=== PATIENT | male | born 1960 | race Caucasian/White ===

== ENCOUNTER 2019-02-21 06:05 | Inpatient (IN) ==
[2019-02-21] MEDS ORDERED: Albuterol 2.5 MG/3 ML NEBULIZER IH ONE (06:19)
[2019-02-21] MEDS ORDERED: CeFAZolin Syr 2,000MG/20 ML 2,000 MG/20 ML SYRINGE IVPB ONE (06:20)
[2019-02-21] MEDS ORDERED: Ringers Solution, Lactated 1,000 ML IVC SCH ×2 (06:30→10:27)
[2019-02-21] MEDS ORDERED: Famotidine 20 MG/2 ML VIAL IVP ONE (06:45)
[2019-02-21] MEDS ORDERED: Celecoxib 100 MG CAPSULE PO ONE (06:46)
--- NOTE | 2019-02-21 06:56 | Anesthesia Evaluation PreOp ---
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 History: Denies Any Significant HX Other Medical History: Denies Any Significant HX, GERD Alcohol Use: none Drug use: none Medications and Allergies Albuterol Sulfate [Ventolin Hfa] 2 puff IH Q4H PRN 06/20/18 [History] Amitriptyline [Elavil] 50 mg PO HS 06/20/18 [History] Buspirone HCl [Buspar] 10 mg PO DAILY 06/20/18 [History] Citalopram Hydrobromide [Citalopram HBr] 40 mg PO DAILY 06/20/18 [History] Fluticasone/Salmeterol [Advair 250-50 Diskus] 1 puff IH DAILY 06/20/18 [History] Gabapentin [Neurontin] 800 mg PO TID 06/20/18 [History] Isosorbide MONOnitrate (24 HR) [Imdur] 30 mg PO DAILY 06/20/18 [History] Omeprazole [PriLOSEC] 40 mg PO DAILY 06/20/18 [History] Oxymorphone HCl [Oxymorphone HCl ER] 40 mg PO TID 06/20/18 [History] Ranitidine HCl [Acid Brush Holder Assembler] 150 mg PO BID PRN 06/20/18 [History] rOPINIRole [Requip] 3 mg PO TID 06/20/18 [History] Allergy/AdvReac Type Severity Reaction Status Date / Time latex Allergy Hives Verified 02/13/19 09:14 tiotropium Allergy Hives Verified 02/13/19 09:14 [From Spiriva with HandiHaler] - Meds/Allergy Pre-op Review Medications Reviewed: Yes Allergies Reviewed: Yes Beta Blockers on Current Med List: No Anesthesia Results - Labs Laboratory Tests 03/14/15 02/13/19 02/13/19 08:56 09:20 09:20 Hgb 13.3 Hct 41.8 Plt Count 222 Sodium 136 Potassium 4.7 BUN 12 POC Creatinine 0.80 - Imaging EKG: report reviewed (SR) Anesthesia Exam O2 Sat Height 1.63 m Weight 79.379 kg O2 Sat by Pulse Oximetry 97 O2 Sat by Pulse Oximetry 97 Vital Signs Temp Pulse Resp BP Pulse Ox 97.9 F 90 16 126/86 97 02/21/19 06:22 02/21/19 06:22 02/21/19 06:22 02/21/19 06:22 02/21/19 06:22 Height: 5'4 Weight: 175 lbs NPO (# of Hours): MN Pain Scale: 0 - HEENT Pupil (Motor): Pupils equal, EOMI Mallampati: III Teeth: Edentulous Oral Opening: Less than or equal to 3 - GALVANIZING POT RUNNER LOC: Oriented GALVANIZING POT RUNNER Motor: Normal RUE, Normal LUE, Normal RLE, Normal LLE, Normal Face GALVANIZING POT RUNNER Sensory: Normal: RUE, LUE, RLE, LLE, Face - Cardiac Rhythm: Regular Murmur: None JVD: No Carotid Bruit: No - Pulmonary Breath Sounds: bilateral Clear Respiratory Effort: Symmetrical Anesthesia Assess/Plan ASA Score: 3 (CAD HTN COPD MARY Tobacco) Level of consciousness: Cooperative, Oriented Anesthetic Plan: General, Regional Nerve Block Regional Nerve Block Plan: Supraclavicular Autologous Blood: No Monitoring Plan: Standard Monitors Recovery Plan: PACU (Discussed GA, RA, agrees to proceed)
[2019-02-21] MEDS ORDERED: *HR* Propofol 200 MG/20 ML VIAL IVP ONE (06:58)
[2019-02-21] MEDS ORDERED: *HR* Midazolam HCl 2 MG/2 ML VIAL ONE (06:58)
[2019-02-21] MEDS ORDERED: *HR* FentaNYL (PF) 100 MCG/2 ML VIAL ONE (06:58)
[2019-02-21] MEDS ORDERED: Lidocaine -MPF 2% 2 ML VIAL ONE (07:11)
[2019-02-21] MEDS ORDERED: Lidocaine -MPF 4% 5 ML AMPUL ONE (07:11)
[2019-02-21] MEDS ORDERED: Ondansetron 4 MG/2 ML VIAL ONE (07:11)
[2019-02-21] MEDS ORDERED: Ethanol\\Acetic Acid\\Na Ace\\Ben 1,000 ML IRRIG.SOLN IR ONE (07:16)
[2019-02-21] MEDS ORDERED: ROPIVACAINE/PF/NS 0.25% 1 EACH SYRINGE INTRAART ONE (07:24)
[2019-02-21] MEDS ORDERED: Ropivacaine/PF 0.5% 30 ML VIAL ONE (07:24)
--- NOTE | 2019-02-21 07:30 | History & Physical Report ---
Date of Encounter: 02/21/19 Time of Encounter: 07:30 24 Hour HP Update - Instructions Instructions: If the History and Physical is less than 30 days old and was completed prior to A.M. admission and or procedure and has NOT been updated on calendar day of procedure please complete this update prior to performing procedure. - Update Patient reports changes in Medical Condition: No Changes in examination, assessment, or condition: No Changes in Medication: No Preop tests/diagnostics Reviewed: Yes Surgery Remains Indicated: Yes Consent for Planned Operative Procedure(s) Verified: Yes
[2019-02-21] MEDS ORDERED: *HR* PHENYLEPHRINE 1,000 MCG/10 ML SYRINGE IVP ONE (08:08)
--- NOTE | 2019-02-21 08:23 | Anesthesia Procedures ---
Date of Encounter: 02/21/19 Time of Encounter: 07:44 Procedures: Anesthesia - Nerve Block Procedure Date: 02/21/19 Time: 07:44 Allergies/Adv Reactions: Allergies Allergy/AdvReac Type Severity Reaction Status Date / Time latex Allergy Hives Verified 02/21/19 07:14 tiotropium Allergy Hives Verified 02/21/19 07:14 [From Spiriva with HandiHaler] Pre-op Diagnosis: Right Shoulder Cuff Tear Arthropathy Surgical Procedure: Right Reverse Total Shoulder Replacement Checklist: Correct Patient Identifier, Correct procedure, History checked Correct side: Right Blood Thinner: No Monitor Applied: EKG, BP, Pulse Oximetry Supplemental Oxygen via Nasal Cannula (L/min): 2 Sedation: Versed (mg): 2 Sedation: Fentanyl (mcg): 50 Indication: Post Op Analgesia Pre-op Neuro Deficits: No Block Type: Supraclavicular (ICB and SCP along with Supraclavicular) Sterile Technique: Yes Ultrasound used: Yes Anatomy identified: Yes Visual spread of Local: Yes Neuro Stimulation: No Blood on Needle Aspiration: No Smooth Injection of Local: Yes Pain with Injection of Local: No Prep: Chlorhexadine Needle: 22 x 50 mm Stimuplex Local: Ropivacaine (30ml 0.5% with 8mg Decadron (Supraclavicular) and Ropivacaine 0.25% used for ICB and SCP blocks 7ml each (14ml total)) Volume (cc): 44ml Number of Attempts: 1 Complications: None/effective block Vitals: Vital Signs/O2 Sat/Glucose, Most Recent Temp Pulse Resp BP Pulse Ox 97.9 F 83 16 121/82 94 02/21/19 06:22 02/21/19 07:43 02/21/19 07:43 02/21/19 07:43 02/21/19 07:43
[2019-02-21] MEDS ORDERED: *HR* Rocuronium Bromide 50 MG/5 ML VIAL ONE (08:42)
[2019-02-21] MEDS ORDERED: *HR* Succinylcholine 200 MG/10 ML VIAL IVP ONE (08:50)
[2019-02-21] MEDS ORDERED: Tranexamic Acid 1,000 MG/10 ML VIAL ONE (09:00)
[2019-02-21] MEDS ORDERED: Neostigmine Methylsulfate 3 MG/3 ML SYRINGE ONE (09:15)
--- NOTE | 2019-02-21 10:13 | Anesthesia Evaluation Post Op ---
Date of Encounter: 02/21/19 Time of Encounter: 10:12 - Vital Signs Vital Signs: Vital Signs/O2 Sat, Most Current Temp Pulse Resp BP Pulse Ox 97.3 F L 77 16 103/63 99 02/21/19 10:08 02/21/19 10:08 02/21/19 10:08 02/21/19 10:08 02/21/19 10:08 - Lungs Lungs: Clear Ascult./Percussion - Airway Airway: Non-obstructed - Cardiovascular Regular Rate - Mental Status Mental Status: Asleep with brisk response to light stimulation - Pain Pain Scale: 0 Pain Scale used: Numeric (1 - 10) - Nausea Vomiting Nausea Vomiting: Not Present - Hydration Hydration: Ice chips, Has not voided - Discharge PostOp Status: Transfer Patient to floor
--- NOTE | 2019-02-21 10:18 | Orthopedic Operative Note ---
Date of procedure: 02/21/19 Procedure: Procedure: Right reverse total shoulder arthroplasty Preoperative diagnosis: Right shoulder cuff tear arthropathy Postoperative diagnosis: Same Surgeon: Jl Pool MD Electric Truck Operator: None Anesthesia: General with regional block EBL: 100 cc Components used: Tornier perform reversed 25 mm+3mm lateralized baseplate, 35x6.5mm center screw. 39 standard glenosphere, Aequalis ascend flex 4bPTC stem, Low offset +0 thick tray, Flex 39+6mm poly Complications: none Indications: This is a 58-year-old male who has long history of right shoulder pain with cuff tear arthropathy confirmed on radiographs. Pain and limitation in motion has been present and has been progressively worsening. 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 The patient has failed conservative treatment including anti- inflammatories, therapy and injections. The patient has elected for a right reverse shoulder replacement after failure of nonoperative treatment. The risks and benefits of the procedure were fully explained to the patient. These risks include, but are not limited to, the risk of infection, neurovascular injury, continued pain and stiffness of the shoulder, need for further surgery, DVT, PE, loss of limb and loss of life. The patient did understand all of these risks and wishes to proceed. Informed consent was then obtained. Operative procedure: The patient was brought back to the OR suite by the anesthesia staff. The patient was then placed supine on the operating table and all bony prominences were padded. The anesthesiologist then performed successful general anesthetic for the remainder of the case. The head, neck and airway were secured and protected by anesthesia. The bed was elevated about 30 degrees. The right upper extremity was then prepped and draped in the normal sterile orthopedic fashion and placed in the Trimano arm rush. Preoperative antibiotics were then given prior to incision. A timeout was performed confirming the correct patient, site and side, procedure to be performed and any allergies. All were in agreement and we did proceed. A standard deltopectoral approach was performed. We dissected down through the skin coagulating any bleeders were encountered. The cephalic vein was then identified and taken laterally with the deltoid. Adhesions were cleared from underneath the deltoid and a brown retractor was placed. The interval between the deltoid and pectoralis was then developed and kolbel retractor was placed. A Darrach retractor was then placed under the acromion. The biceps tendon had previously been torn. There was a tear of the subscapularis. The lateral border of the conjoined tendon was then identified and the capsule was then released from the anterior aspect of the humerus around inferiorly to the back of the humerus. The humerus was subluxed anteriorly. The supraspinatus was completely torn from its insertion. Moderate cartilage loss was present on the humeral head. Osteophytes were present and removed removed. A humeral osteotomy was then performed, and the humerus was sounded and broached to the appropriate size. Attention was then turned to the glenoid. The humerus was subluxed posteriorly and retractors were placed on the anterior and posterior aspects of the glenoid. There was a posterior superior wear pattern of the glenoid with moderate cartilage loss. The axillary nerve was palpated and protected throughout the case. Labral debridement was then performed. A central guide pin was placed in the appropriate position on the glenoid. Central drill hole was drilled and the glenoid was then reamed in accordance with the YouDo perform reverse shoulder system. The glenoid baseplate was screwed in place and 4 peripheral drill holes were drilled and filled with the appropriate length screws. The final glenosphere was then impacted and the glenoid sphere screw was tightened in place. Attention was turned back to the humerus. The humerus was subluxed back anteriorly and a trial humeral stem, tray and poly trials were placed. Trial humeral reverse trays and poly were then placed sequentially until the most appropriate size was identified. The trial size +6 mm poly was tested and had excellent range of motion, and stability was verified. The final component was assembled on the back table and then inserted, and the shoulder was reduced. Again the shoulder was taken through range of motion and there was excellent range of motion and stability. The deltopectoral interval was tagged with 2-0 surgilon, and the incision was closed with 2-0 stratafix deep and a running 3-0 stratafix subcuticular. Sterile dressing was placed, the arm was placed in a sling and the patient was taken to the PACU in stable condition. There were no complications during the case. Post op plan: The patient will go into the reverse shoulder protocol. Was there an medication assistant present: No Estimated blood loss (cc): 100
[2019-02-21] MEDS ORDERED: Ondansetron 4 MG/2 ML VIAL IVP PRN (10:27)
[2019-02-21] MEDS ORDERED: MOM Conc 10 ML UD.LIQ PO PRN (10:27)
[2019-02-21] MEDS ORDERED: *HR* OxyCODONE Immed Rel 5 MG TABLET PO PRN (10:27)
[2019-02-21] MEDS ORDERED: *HR* OxyCODONE/APAP 5/325 TABLET PO PRN (10:27)
[2019-02-21] MEDS ORDERED: Ketorolac 15 MG/ML VIAL IVP PRN (10:27)
[2019-02-21] MEDS ORDERED: Sennosides 8.6 MG TABLET PO PRN (10:27)
[2019-02-21] MEDS ORDERED: traMADol 50 MG TABLET PO PRN (10:27)
[2019-02-21] MEDS ORDERED: Temazepam 15 MG CAPSULE PO PRN (10:27)
[2019-02-21 13:52] VITALS: BP 129/75
[2019-02-21] MEDS ORDERED: *HR* Enoxaparin 30 MG/0.3 ML SYRINGE SQ SCH (14:45)
[2019-02-21] MEDS ORDERED: Gabapentin 400 MG CAPSULE PO SCH (15:00)
[2019-02-22] MEDS ORDERED: Isosorbide MONOnitrate (24 HR) 30 MG TAB.ER.24H PO SCH (09:00)
[2019-02-22] MEDS ORDERED: Aspirin 81 MG TAB.CHEW PO SCH (09:00)
[2019-02-22] MEDS ORDERED: *HR* Enoxaparin 30 MG/0.3 ML SYRINGE SQ SCH (09:37)
[2019-02-22] MEDS ORDERED: Budesonide/Formoterol 80/4.5 MDI IH SCH (10:00)
== END 2019-02-21 15:50 | disposition home or self-care (01) | DRG 483 ==
LOC: SAMDAY 06:05 → 3NENU 10:26
PROVIDERS: ADMIT Orthopaedic Surgery Sports Medicine; ATTEND Orthopaedic Surgery Sports Medicine

== ENCOUNTER 2019-07-01 17:32 | Inpatient (IN) ==
[2019-07-01] MEDS ORDERED: Aspirin 81 MG TAB.CHEW PO ONE (17:53)
[2019-07-01] MEDS ORDERED: Isovue-370 500 ML BOTTLE IVP ONE (18:09)
[2019-07-01 18:34] LABS: Basophils # 0.1 K/mcL (0.0-0.2); Basophils % 0.6 %; Eosinophils # 0.1 K/mcL (0.0-0.6); Eosinophils % 1.3 %; Hematocrit 44.1 % (37.5-50.1); Hemoglobin 14.9 g/dL (12.9-16.9); Immature Granulocytes % 0.4 % (0-4); Lymphocytes # 1.5 K/mcL (0.6-4.6); Lymphocytes % 13.7 %; Mean Corpuscular HGB Conc 33.8 g/dL (31.6-35.5); Mean Corpuscular Hemoglobin 31.8 pg (28.0-33.3); Mean Corpuscular Volume 94.2 fL (83.0-100.0); Mean Platelet Volume 10.7 fL (9.4-12.4); Monocytes # 0.8 K/mcL (0.0-1.3); Neutrophils # 8.6 K/mcL (1.6-8.9); Platelet Count 220 K/mcL (140-400); Red Blood Count 4.68 M/mcL (4.19-5.50); Red Cell Distribution Width 13.4 % (11.5-14.5); White Blood Count 11.1 K/mcL (4.3-11.1)
[2019-07-01 19:00] LABS: BUN/Creatinine Ratio 15 (6-26); Blood Urea Nitrogen 16 mg/dL (6-20); Calcium 8.9 mg/dL (8.6-10.3); Carbon Dioxide 28 mEq/L (23-29); Chloride 104 mEq/L (98-107); Glucose 109 mg/dL (70-105); Osmolality,Calculated 288 (280-300); Sodium 138 mEq/L (136-145); eGFR For African Americans > 60 (> 60); eGFR For Non-African Americans > 60 (> 60)
[2019-07-01] MEDS ORDERED: *HR* Heparin 5,000 UNIT/ML VIAL IVP PRN ×2 (20:06)
[2019-07-01] MEDS ORDERED: *HR* Heparin 5,000 UNIT/ML VIAL IVP ONE (20:06)
[2019-07-01] MEDS ORDERED: Famotidine 20 MG/2 ML VIAL IVP ONE (20:28)
[2019-07-01] MEDS ORDERED: GI Cocktail 40 ML EACH PO ONE (20:28)
[2019-07-01] MEDS ORDERED: Nitroglycerin 0.4 MG TAB.SUBL SL PRN (20:30)
[2019-07-01] MEDS ORDERED: Albuterol 2.5 MG/3 ML NEBULIZER IH PRN (20:33)
[2019-07-01 20:57] LABS: INR 1.1
[2019-07-01] MEDS: Nitroglycerin 0.4 MG TAB.SUBL SL SCH ×2 (21:18→21:19)
[2019-07-01] MEDS: Heparin 25,000 UNIT/250 ML D5W 25,000 UNIT/250 ML IV.SOLN IVC SCH (21:49)
[2019-07-01] MEDS: Gabapentin 400 MG CAPSULE PO SCH (21:51)
[2019-07-02] MEDS: Budesonide/Formoterol 80/4.5 1 PUFF INH IH SCH (07:22)
[2019-07-02] MEDS: Gabapentin 400 MG CAPSULE PO SCH ×3 (08:58→19:57)
[2019-07-02] MEDS: Isosorbide MONOnitrate (24 HR) 30 MG TAB.ER.24H PO SCH (08:59)
[2019-07-02] MEDS: Aspirin 81 MG TAB.CHEW PO SCH (08:59)
[2019-07-02] MEDS: Metoprolol XL (24 HR) Succ 25 MG TAB.ER.24H PO SCH (10:00)
[2019-07-02 10:56] LABS: Chol/HDL Ratio 4.2 (0-4.9)
[2019-07-02] MEDS: Heparin 25,000 UNIT/250 ML D5W 25,000 UNIT/250 ML IV.SOLN IVC SCH (16:36)
[2019-07-03 01:09] LABS: Basophils # 0.1 K/mcL (0.0-0.2); Basophils % 1.1 %; Eosinophils # 0.3 K/mcL (0.0-0.6); Eosinophils % 3.4 %; Hematocrit 44.3 % (37.5-50.1); Hemoglobin 14.8 g/dL (12.9-16.9); Immature Granulocytes % 0.2 % (0-4); Lymphocytes # 2.2 K/mcL (0.6-4.6); Lymphocytes % 26.2 %; Mean Corpuscular HGB Conc 33.4 g/dL (31.6-35.5); Mean Corpuscular Hemoglobin 31.2 pg (28.0-33.3); Mean Corpuscular Volume 93.3 fL (83.0-100.0); Mean Platelet Volume 11.2 fL (9.4-12.4); Monocytes # 0.7 K/mcL (0.0-1.3); Monocytes % 8.5 %; Neutrophils # 5.1 K/mcL (1.6-8.9); Platelet Count 195 K/mcL (140-400); Red Blood Count 4.75 M/mcL (4.19-5.50); Red Cell Distribution Width 13.4 % (11.5-14.5); Segmented Neutrophils % 60.6 %; White Blood Count 8.5 K/mcL (4.3-11.1)
[2019-07-03 01:27] LABS: BUN/Creatinine Ratio 26 (6-26); Blood Urea Nitrogen 18 mg/dL (6-20); Calcium 9.1 mg/dL (8.6-10.3); Carbon Dioxide 24 mEq/L (23-29); Chloride 104 mEq/L (98-107); Glucose 103 mg/dL (70-105); Magnesium 2.1 mg/dL (1.6-2.6); Osmolality,Calculated 284 (280-300); Potassium 4.1 mEq/L (3.5-5.1); Sodium 136 mEq/L (136-145); eGFR For African Americans > 60 (> 60); eGFR For Non-African Americans > 60 (> 60)
[2019-07-03 07:22] VITALS: BP 143/91
[2019-07-03] MEDS: Gabapentin 400 MG CAPSULE PO SCH (07:28)
[2019-07-03] MEDS: Budesonide/Formoterol 80/4.5 1 PUFF INH IH SCH (07:34)
[2019-07-03] MEDS: Isosorbide MONOnitrate (24 HR) 30 MG TAB.ER.24H PO SCH (07:53)
[2019-07-03] MEDS: Metoprolol XL (24 HR) Succ 25 MG TAB.ER.24H PO SCH (07:53)
[2019-07-03] MEDS: Aspirin 81 MG TAB.CHEW PO SCH (07:53)
== END 2019-07-03 11:07 | disposition home or self-care (01) | DRG 282 ==
LOC: 2NENU 17:32 → EMEROOARM 17:32 → 2NENU 21:00 → SUATTDRO 07-02 15:37
PROVIDERS: ADMIT Pharmacist; ATTEND Pharmacist